=== PATIENT | male | born 1980 | race Caucasian/White ===

== ENCOUNTER 2019-07-08 11:56 | Emergency (ER) | payer OTHER ==
[~2019-07-08] VITALS: Ht 188 cm; Wt 152.0 kg
[~2019-07-08 11:56] MED LIST: ALLEGRA30 MG PO; AUGMENTIN 875875 MG PO; IBUPROFEN 600600 M1 PO; IBUPROFEN 800800 M1 PO; LISINOPRIL5 MG PO; NORCO 5-325 TA1 EACH PO; ZANTAC 150MG T150 M1 PO
[2019-07-08 11:59] VITALS: BP 116/73
[2019-07-08] MEDS ORDERED: DOXYCYCLINE 10100 MG PO (12:53)
[2019-07-08] MEDS ORDERED: FLONASE 0.05%50 MCG NARES (12:53)
[2019-07-08] MEDS ORDERED: CORICIDIN HBP1 EACH PO (12:53)
== END 2019-07-08 13:10 | disposition home or self-care (01) ==
LOC: ER 11:56
DX: J32.9 Chronic sinusitis, unspecified (principal); I10 Essential (primary) hypertension; Z87.891 Personal history of nicotine dependence